=== PATIENT | female | born 1955 ===

== ENCOUNTER 2018-06-07 08:52 | Day surgery (SDC) | payer OTHER ==
[~2018-06-07 08:52] MED LIST: TOPROL XL50 M1 PO
== END 2018-06-07 17:45 | disposition home or self-care (01) ==
LOC: CIR.AMB 08:52
DX: G57.02 Lesion of sciatic nerve, left lower limb (principal); M70.62 Trochanteric bursitis, left hip

== ENCOUNTER → 2019-01-18 | Outpatient (CLI) | payer OTHER | END | disposition home or self-care (01) | LOC: NUCLEAR 11:00 | DX: M81.0 Age-related osteoporosis without current pathological fracture (principal) ==

== ENCOUNTER 2021-12-26 14:42 | Emergency (ER) | payer OTHER ==
[~2021-12-26] VITALS: Ht 157.5 cm; Wt 54.4 kg
[2021-12-26] MEDS ORDERED: ANASTROZOLE1 MG PO (16:04)
[2021-12-26] MEDS ORDERED: ZITHROMAX500 MG PO (16:49)
[2021-12-26] MEDS ORDERED: ZYRTEC10 MG PO (16:49)
[2021-12-26] MEDS ORDERED: DOLOGEN CAPLET1 EACH PO (16:49)
[2021-12-26] MEDS ORDERED: TUSNEL LIQUID178 ML PO (16:49)
== END 2021-12-26 17:45 | disposition home or self-care (01) ==
LOC: ER 14:42
DX: U07.1 COVID-19 (principal)

== ENCOUNTER → 2022-08-10 | Emergency (ER) | payer OTHER ==
[~2022-08-10] VITALS: Ht 160 cm; Wt 54.4 kg
[~2022-08-10] MED LIST changes: +AMBIEN10 MG PO; +ANASTROZOLE1 MG PO; +DOLOGEN CAPLET1 EACH PO; +TUSNEL LIQUID178 ML PO; +ZITHROMAX500 MG PO; +ZYRTEC10 MG PO
== END | disposition left against medical advice (07) ==
LOC: ER 12:23
DX: S89.91XA Unspecified injury of right lower leg, initial encounter (principal); X58.XXXA Exposure to other specified factors, initial encounter; Y93.9 Activity, unspecified; Y92.9 Unspecified place or not applicable